=== PATIENT | male | born 1985 | race Caucasian/White ===

== ENCOUNTER 2019-04-15 06:03 | Observation (INO) | payer OTHER ==
[2019-04-15] VITALS (9 sets, daily range): BP systolic 114–140; BP diastolic 62–83
[~2019-04-15] VITALS: Ht 172.7 cm; Wt 98.0 kg
[~2019-04-15 06:03] MED LIST: TALTZ SYRI80 MG/1 ML SUBQ
[2019-04-16 00:18] VITALS: BP 135/82
[2019-04-16 08:54] VITALS: BP 125/73
--- NOTE | 2019-04-16 10:30 | O ---
[facility] [place] [address] OPERATIVE REPORT Name: DUSTY NUNO Room #: 449-I [facility] M.Estephanie#: [id number] Admission: 04/15/19 Attend Phys: Roger Ricci Discharge: Date of : 81 Report #: [id number] THIS REPORT FOR: //name// CC: Trevor Cifuentes DATE OF SERVICE: 04/15/2019 PROCEDURE: Excision of thyroglossal [place], [place] [address]. PREOPERATIVE DIAGNOSIS: Thyroglossal duct cyst. POSTOPERATIVE DIAGNOSIS: Thyroglossal duct cyst. SURGEON: Trevor Parish MD ANESTHESIA: General. ESTIMATED BLOOD LOSS: 25 mL. COMPLICATIONS: None. SPECIMENS: Thyroglossal duct cyst was sent for pathology. FINDINGS: The patient was found to have a lobulated cystic lesion in the midline of the throat and this was extending into the thyroid notch at the level of the thyrohyoid membrane. INDICATIONS FOR PROCEDURE: The patient is a 33-year-old gentleman who presented to clinic with a complaint of a neck mass. Imaging revealed a cystic structure in the midline of the neck compatible with a thyroglossal duct cyst. Surgical excision was discussed with him including the risks and benefits and he elected to proceed. DESCRIPTION OF PROCEDURE: After informed consent was obtained, the patient was taken to the operating room and placed in a supine position. He underwent general anesthesia with endotracheal intubation. He was prepped and draped in the usual fashion. A timeout was performed and the correct patient and procedure were identified. A horizontal incision was marked over the cyst and the skin crease in the neck. This was infiltrated with approximately 3 mL of 1% lidocaine with 1:100,000 epinephrine. After time was given for vasoconstriction to take effect, the skin was divided with a 15 blade scalpel and the subcutaneous tissue and platysma muscle were then divided with the Bovie cautery. Subplatysmal flaps were then raised both superiorly and inferiorly. There was noted to be a cystic lesion overlying the thyroid cartilage in the midline. The strap muscles were dissected free of this using both blunt and [facility] [address] [place] [address] OPERATIVE REPORT Name: DUSTY NUNO Room #: 449-I [facility] Barbra#: [id number] Admission: 04/15/19 Attend Phys: Roger Ricci Discharge: Date of : 81 Report #: [id number] sharp dissection and retracted laterally. The cyst was then grasped near the inferior aspect and retracted. It was found to have a lobulated portion which was pressing into the thyroid notch at the level of the thyrohyoid membrane and this was elevated out of the thyroid notch. Dissection was then carried superiorly on both sides until the cyst was pedicled on the hyoid bone. The hyoid bone was then skeletonized using Bovie cautery bilaterally. It was then cut on both sides of the cyst at approximately the level of the lesser cornu. Using bone snips, approximately 1 cm of bone was cut. Dissection was then carried out superior to the hyoid and a cuff of the tongue musculature was taken attached to the cyst and the hyoid bone. The specimen was then passed off and sent for permanent pathology. Wound was then copiously irrigated with saline and hemostasis was achieved with the bipolar cautery. Saline was then placed into the wound again and anesthesia performed Valsalva and maneuver and no leak was detected. The wound was then closed in layers. A 10 round fluted BRANDIE drain was placed and this was secured to the skin with a 2-0 nylon suture. The strap muscles were reapproximated using 4-0 Vicryl. The subcutaneous and platysma muscle were also approximated using 4-0 Vicryl suture. The skin was approximated using a running subcuticular 4-0 Monocryl and Dermabond. The patient was then turned back over the anesthesia service, successfully awakened in the operating room and taken to the recovery room in stable condition. All counts were reported as correct and there were no complications during the procedure. DISPOSITION: The patient will be observed overnight for drain management and pain control as long as he is doing well in the morning, he will be able to be discharged home. <ELECTRONICALLY SIGNED> By: Trevor Parish MD 04/16/19 1030 1108 1122 Trevor Parish MD /nt
[2019-04-16 11:54] VITALS: BP 125/73
--- NOTE | 2019-04-17 14:06 | PATH ---
[facility] [address] [place] [address] PATHOLOGY RPT PROCEDURE Name: DUSTY NUNO Room #: 449-I MANI Belle#: [id number] Admission: 04/15/19 Date of : 81 Discharge: 04/16/19 Report #: [id number] Path Case #: [id number] [facility] Accession Number: [id number] . 01 Material submitted: . neck - NECK CYST . 01 Clinical history: . Thyroglossal duct cyst . 02 Diagnosis: Neck cyst, excision: - Compatible with a thyroglossal duct cyst. - No thyroid tissue present. - Fragments of reactive bone and skeletal muscle along with hemorrhage. - Negative for malignancy. (IUV/db; 04/16/2019) LBQ 04/17/2019 1339 Local . 02 Electronically signed: . Maryam Green MD, Pathologist NPI- [id number] . 01 Gross description: . The specimen is received in formalin, labeled "Dusty Nuno, neck cyst", consist of a landers-yellow bone measuring 1.0 x 0.8 x 0.7 cm with adherent landers-yellow intact cyst measuring 3.5 x 2.2 x 1.7 cm. The cyst is filled with landers-yellow mucoid material and a smooth inner lining with no discrete granulation or papillary excrescence. Representatively submitted in A1 after decalcification. ([facility]; 04/15/2019) [facility] 04/15/2019 2017 [facility] . 02 Pathologist provided ICD-10: Q89.2 . 02 CPT . 605653 Specimen Comment: A courtesy copy of this report has been sent to Specimen Comment: [phone], . Specimen Comment: Report sent to / DR ORTEGA Performed at: [address], [place] [id number] MD Ld Ma MD Phone: [phone] Performed at: [address] [id number] [address] [address] PATHOLOGY RPT PROCEDURE Name: DUSTY NUNO Room #: 449-I MANI Belle#: [id number] Admission: 04/15/19 Date of : 81 Discharge: 04/16/19 Report #: [id number] Path Case #: [id number] MD Maryam Green MD Phone: [phone]
== END 2019-04-16 12:19 | disposition home or self-care (01) ==
LOC: OR 06:03 → TBA 06:09 → OR 11:16 → 4W 12:58 → OR 13:02 → 4W 13:02 → OR 16:05 → ENTRNSPT 04-16 11:58 → EDTRNSPTSTS 04-16 12:00 → 4W 04-16 12:19
PROVIDERS: ADMIT Otolaryngology
DX: Q89.2 Congenital malformations of other endocrine glands (principal); Z79.899 Other long term (current) drug therapy
CPT/HCPCS: 10047; 50010; 50101; 50331; 50386; 50398; 51412; 52190; 54118; 56525; 56526; 57006; 62110; 62900; 70005